=== PATIENT | female | born 1965 | race Caucasian/White ===

== ENCOUNTER → 2016-04-12 | Outpatient (CLI) | payer OTHER ==
--- NOTE | 2016-04-18 10:45 | DIAGNOSTIC IMAGING REPORT ---
PROCEDURE: MG B/L IMPLANTS - SCREENING INDICATION: SCREENING TECHNIQUE: CC and MLO digital views of each breast with CC and MLO digital implant-displacement views. COMPARISON: Mammograms 12/21/2013, 12/16/2012 and 03/19/2011. FINDINGS: Computer-aided detection applied. Intact bilateral subpectoral implants. Mild to moderately dense visualized breast parenchyma is unchanged. No suspicious mass or microcalcifications. IMPRESSION: 1. Negative mammogram with bilateral breast implants RESULT CODE: 1- Negative. A. A negative report should not delay biopsy if a dominant or clinically suspicious mass is present. 10-15% of cancers are not identified by x-ray. B. A negative report may reinforce clinical impression. C. Adenosis and dense breasts may obscure an underlying neoplasm. D. False positive reports average 6-10%. E.. A yearly screening mammogram is recommended. A reminder letter will be scheduled.
== END ==
LOC: MAM SRH 11:14
DX: Z12.31 Encounter for screening mammogram for malignant neoplasm of breast (principal)